=== PATIENT | female | born 1955 | race Caucasian/White ===

== ENCOUNTER 2024-09-19 04:39 | Observation (INO) | payer BC, SELFPAY ==
[2024-09-18 23:35] VITALS: BP 161/68
[2024-09-18 23:36] VITALS: BP 161/68; BMI 30.4
[2024-09-18 23:49] LABS: Hematocrit 41.5 % (37.0-47.0); Hemoglobin 14.1 g/dL (12.0-16.0); Mean Corp Hgb Conc. 34.0 g/dL (33.0-37.0); Mean Corpuscular Volume 83.2 fL (81.0-99.0); Nucleated Red Blood Cells % 0 %; Platelet Count 229 10^3/uL (130-400); Red Cell Dist. Width 12.5 % (11.5-14.5)
[2024-09-18 23:58] LABS: ALT (SGPT) 36 U/L (0-35); AST (SGOT) 25 U/L (14-36); Albumin 4.8 g/dl (3.5-5.0); Alkaline Phosphatase 89 U/L (38-126); Blood Urea Nitrogen 14 mg/dl (7-17); Calcium 10.3 mg/dl (8.4-10.2); Carbon Dioxide 26 mmol/L (22-30); Chloride 108 mmol/L (98-107); Estimated Creatinine Clearance 84 ml/min; Glucose 108 mg/dl (70-99); Potassium 4.0 mmol/L (3.5-5.1); Sodium 142 mmol/L (135-145); Total Protein 7.3 g/dl (6.3-8.2); eGFR > 60.00
[2024-09-19] VITALS (9 sets, daily range): BP systolic 108–181; BP diastolic 60–82; PULSE 69–80; O2SAT 95; BMI 28.3
[2024-09-19] LABS: INR 0.90; PT 12.6 Sec (11.4-14.6)
[2024-09-19 00:01] LABS: APTT 30.3 Sec (23.4-35.0)
[2024-09-19 00:09] LABS: Troponin I < 0.012 ng/ml
--- NOTE | 2024-09-19 00:34 | ED.CVA ---
History of Present Illness
General
Chief Complaint: CVA/TIA Symptoms
Source: patient
Exam Limitations: none
Time Seen by Provider: 09/18/24 23:33
Nursing documentation reviewed up to this point in time: agreed with
Onset of Stroke Symptoms
Onset of symptoms known: Yes
Date of onset of symptoms: 09/18/24
Time of onset of symptoms: 21:30
History of Present Illness
History of Present Illness:
Note:
CHIEF COMPLAINT(S)
Difficulty focusing, numbness in fingers, and transient speech difficulties.
HISTORY OF PRESENT ILLNESS
The patient is a 69-year-old female who reported difficulty focusing around 8:30 AM while at her computer. She experienced numbness in three fingers of her hand, which lasted one to two minutes and then resolved spontaneously. Later in the day,
approximately two hours prior to the evaluation, the patient had difficulty recalling a friends name during a conversation and experienced transient speech disturbances, described as words not coming out clearly. These episodes resolved within one
to two minutes, and she reported feeling well since. The patient denies a history of neurological issues, strokes, or cardiac issues.
MEDICATIONS
- Lisinopril Hydrochloride for hypertension
- Atorvastatin
- Acetaminophen as needed for discomfort
REVIEW OF SYSTEMS
- Neurological: Difficulty focusing, transient numbness in fingers, speech disturbances.
- Cardiovascular: No history of cardiac issues reported.
PHYSICAL EXAM
Nursing notes reviewed and vital signs reviewed.
PROBLEM LIST
Acute:
- Transient speech disturbances
- Numbness in fingers
- Difficulty focusing
PLAN
- Conduct a computerized tomography scan to evaluate the concerning symptoms and ensure no progression to a more severe condition.
- Monitor for any development of worsening symptoms.
DIFFERENTIAL DIAGNOSIS
The Differential Diagnosis includes, in no particular order and is not limited to:
- Transient ischemic attack
- Stroke
- Seizure
- Migraine with aura
- Hypoglycemia
- Multiple sclerosis
- Conversion disorder
- Carpal tunnel syndrome
- Stress-induced symptomatology
- Benign fasciculation syndrome
CARE-UPDATE
09/19/24 - 00:31
Updated the note to include recent CT scan results, which were positive as interpreted by both the radiologist and AI, indicating no immediate concerns. Despite reassuring imaging results, patient advised to stay in the hospital for further
observation due to previous episode of aphasia. Further neurological testing scheduled for the following day to investigate potential underlying causes. Current cholesterol medication regimen unchanged.
NIHSS:
Result Summary
0 points undefined
Inputs:
1A: Level of consciousness -> 0 = Alert; keenly responsive
1B: Ask month and age -> 0 = Both questions right
'Blink eyes' & 'squeeze hands' -> 0 = Performs both tasks
2: Horizontal extraocular movements -> 0 = Normal
3: Visual anaya -> 0 = No visual loss
4: Facial palsy -> 0 = Normal symmetry
5A: Left arm motor drift -> 0 = No drift for 10 seconds
5B: Right arm motor drift -> 0 = No drift for 10 seconds
6A: Left leg motor drift -> 0 = No drift for 5 seconds
6B: Right leg motor drift -> 0 = No drift for 5 seconds
7: Limb ataxia -> 0 = No ataxia
8: Sensation -> 0 = Normal; no sensory loss
9: Language/aphasia -> 0 = Normal
10: Dysarthria -> 0 = Normal
11: Extinction/inattention -> 0 = Normal
Disposition:
SUMMARY OF ENCOUNTER
The patient, a 69-year-old female, presented to the emergency department with transient symptoms including difficulty focusing, speech disturbances, and numbness in the fingers, raising concerns of a transient ischemic attack (TIA). A CT scan was
conducted and reviewed, showing no immediate concerns, but due to the previous episode of aphasia and given her age, it was deemed necessary to admit her for further observation and evaluation to rule out the possibility of more severe conditions
such as a stroke.
DISPOSITION
Admit.
ASSESSMENT
The patient is likely experiencing a transient ischemic attack. Additional possibilities include stroke and other neurological conditions that could mimic TIA symptoms.
PLAN
The patient will be admitted for further observation and more extensive neurological testing will be conducted to investigate underlying causes. CT scan results are reassuring, but close monitoring is required.
INDEPENDENT REVIEW OF LABS AND INTERPRETATION OF TESTS
- My independent evaluation of the recent CT scan indicates no immediate concerns with focus on ruling out acute ischemic stroke.
DIAGNOSIS
- Transient ischemic attack (G45.9)
- Potential for ischemic stroke (I63.9)
MEDICAL DECISION MAKING
- Number and Complexity of Problems Addressed: Chronic conditions affecting care include hypertension and hyperlipidemia. Differential diagnosis includes transient ischemic attack, stroke, seizure, migraine with aura, hypoglycemia, multiple
sclerosis, conversion disorder, carpal tunnel syndrome, stress-induced symptomatology, and benign fasciculation syndrome.
- Data:
- Category 1: My independent review of the CT scan was conducted to ensure there were no acute signs of stroke, and results were reassuring.
- Category 3: Admission was discussed and decided upon due to the patients age, symptom presentation, and potential underlying serious conditions requiring close monitoring and further neurologic evaluation.
- Risk: Admission was deemed necessary due to the risk of progression to a more severe condition like a stroke.
Phy Exam
General Physical Exam
General Presentation: well appearing and no apparent distress
General Skin: warm and dry
General Habitus: normal
General Mental: alert
General Hydration: appears well hydrated
ENT Exam
ENT Exam: EOMI, pharynx normal, neck supple and normocephalic
Eye Exam
Eye Exam: PERRL, cornea clear and conjunctiva normal
Cardiovascular Exam
Cardiovascular Exam: regular rate/rhythm, no edema, no murmur and normal peripheral pulses
Pulmonary Exam
Pulmonary Exam: lungs clear, no respiratory distress, no rales, no crackles, no rhonchi, no stridor, no wheezing and no cough
Gastrointestinal Exam
Gastrointestinal Exam: normal bowel sounds, non tender, soft, no organomegaly, no pulsatile mass and non distended
Neurological Exam
Neurological Exam: alert, oriented x3, no motor deficits and speech normal
Musculoskeletal Exam
Musculoskeletal Exam: full ROM and no edema
Skin Exam
Skin Exam: normal color, warm/dry, no rash and no petechia
Psychiatric Exam
Psychiatric Exam: normal mood/affect
Course
Orders/Labs/Results
Orders:
Orders
09/18/24 23:34
CT BRAIN PERF STROKE ALERT Urgent
Comment:
Reason For Exam: resolved aphasia
CT HEAD STROKE ALERT W/o Cont Urgent
Comment:
Reason For Exam: resolved aphasia
CT HEAD/NECK ANG STROKE ALERT Urgent
Comment:
Reason For Exam: resolved aphasia
09/18/24 23:35
Complete Blood Count/With Diff Urgent
Comprehensive Metabolic Panel Urgent
Erythrocyte Sed Rate Urgent
PTT Urgent
Prothrombin Time Urgent
Troponin I Urgent
09/18/24 23:42
EKG [Electrocardiogram (*1)] Urgent
Reason for Study: TIA/Stroke
EKG- Treatment ONCE
Abnormal Lab Results
09/18/24
23:35
Absolute Monos (auto) 0.9 H 10^3/uL
(0.1-0.6)
Monocytes % 10.3 H %
(1.7-9.3)
Chloride 108 H mmol/L
(98-107)
Glucose 108 H mg/dl
(70-99)
Calcium 10.3 H mg/dl
(8.4-10.2)
ALT 36 H U/L
(0-35)
09/18/24 23:35
09/18/24 23:35
Vital Signs
Initial and Last Documented VS:
Initial Vital Signs
Pulse Resp BP Pulse Ox
79 17 161/68 99
09/18/24 23:35 09/18/24 23:35 09/18/24 23:35 09/18/24 23:35
Last Documented Vital Signs
Temp Pulse Resp BP Pulse Ox
98.0 F 77 12 161/68 98
09/18/24 23:36 09/18/24 23:36 09/18/24 23:36 09/18/24 23:36 09/18/24 23:36
*Radiology
Radiology exam reviewed: radiology read reviewed
*Pulse Oximetry
SaO2: 98
Oxygen Mode of Delivery: Room air
Patient hypoxic: no
*Critical Care Note
Total Time (30-74mins, 75-104mins- exclusive of procedures): 36 (Critical care statement: A total of 36 minutes of critical care time was provided for this patient. This time is separate from time utilized to perform the aforementioned documented
procedures. Aggregate critical care time includes only time during which I was engaged in work directl)
ED Attending Note
-
Portions of this chart may have been created with voice recognition software.� Occasional wrong word or��sound alike� substitutions may have occurred due to the inherent limitations of voice recognition software.
Discharge Plan
Departure
Patient Disposition: Admit
Date of Disposition: 09/19/24
Time of Disposition: 00:34
Admit to: Telemetry
Presentation/result/management discussed w/ accepting MD/DO: Hospitalist
Discharge Problem:
Expressive aphasia
Instructions: Transient Ischemic Attack (DC)
Prescriptions:
No Action
cetirizine [Zyrtec] 10 mg Tablet
10 mg PO DAILYPRN PRN (Reason: allegies)
atorvastatin 10 mg tablet
10 mg PO DAILY
lisinopril-hydrochlorothiazide 20-12.5 mg tablet
1 tab PO DAILY
famotidine 40 mg tablet
40 mg PO DAILY
Referrals:
Meena Morrison MD [Family Provider, Family Practice]
Interventions
Interventions:
*Risk Screen - Suicide Last Done: 09/18/24 23:36
*General Assessment Last Done: 09/18/24 23:36
*Neglect/Abuse Screening Last Done: 09/18/24 23:36
*ED- Fall Risk Assessment Last Done: 09/18/24 23:36
ED- Pulmonary Assessment Last Done: 09/19/24 00:34
ED- Neurological Assessment Last Done: 09/18/24 23:42
ED- Cardiac Assessment Last Done: 09/19/24 00:34
Discharge Date and Time
Print Language: AZERI
[2024-09-19] MEDS: ASPIRIN 325 MG PO (00:51)
--- NOTE | 2024-09-19 04:11 | HPS.HSE ---
Family Physician
-
Family Physician: Meena Morrison MD
Chief Complaint
-
Speech difficulty
History of Present Illness
Patient is a 69y F with PMH significant for hypertension who presents to ED complaining of speech difficulties. Patient states that she had an initial episode around 8:30 in the AM of numbness in the L hand and face along wth difficulty reading
/ focusing on word on her computer. These symptoms lasted for 1-2 minutes then fully resolved. She went about her day with no further issues until around 9:30 PM. She was speaking with her when she was noted to have word finding
difficulties and trouble expressing speech. No dysarthria. No numbness / tingling / weakness. No headache or vision changes. These symptoms also lasted 1-2 minutes and then fully resolved. Patient spoke with her PCP who recommended she present
to the ED for further evaluation.
Patient is resting comfortably here with no new / recurrent complaints.
She denies any prior history of CVA / VA / etc.
Medical History
Past Medical History
Past Medical History: Reports Other
Additional Past Medical History:
Hypertension
Dyslipidemia
GERD
Nephrolithiasis
Past Surgical History: Reports Other
Additional Past Surgical History:
Lumbar Discectomy
Lithotripsy
T&A
Social History
Tobacco: Non-smoker
Alcohol: Occasional (Rare)
Drug: None
Personal:
Living: With Family
Family History
Family History: Other (Mother: Leukemia Father: Longevity)
Allergies / Home Medications
Allergies reflects when Allergies were last updated in [employer].
Home Medications with original date entered in [employer]
Allergy/Medication List:
Allergies
Allergy/AdvReac Type Severity Reaction Status Date / Time
acetaminophen (From Percocet) Allergy Intermediate Hives Verified 09/18/24 23:41
oxycodone (From Percocet) Allergy Intermediate Hives Verified 09/18/24 23:41
cat dander Allergy Unknown Verified 09/18/24 23:41
codeine Allergy Itching Verified 09/18/24 23:41
Home Medications
atorvastatin 10 mg tablet 10 mg PO DAILY 05/07/22
cetirizine 10 mg tablet (Zyrtec) 10 mg PO DAILYPRN PRN allegies 05/07/22
famotidine 40 mg tablet 40 mg PO DAILY 05/07/22
lisinopril 20 mg-hydrochlorothiazide 12.5 mg tablet 1 tab PO DAILY 05/07/22
Review of Systems
-
History Source: Patient
A 12 point ROS was completed and negative except as noted: Yes
Constitutional: Denies Fever, Fatigue or Chills
Respiratory: Denies Cough or Trouble Breathing
Cardiac: Denies Chest Pain or Palpitations
Abdomen/GI: Denies Abdominal Pain, Nausea, Vomiting or Diarrhea
: Denies Dysuria or Frequency
Musculoskeletal: Denies Joint Pain or Edema
Neurological: Denies Dizzy, Headache, Weakness or Numbness
Psych: Denies Depression or Anxiety
Physical Exam
Vital Signs
Vital Signs
Temp Pulse Resp BP Pulse Ox
98.0 F 60 17 124/64 96
09/18/24 23:36 09/19/24 02:45 09/19/24 02:45 09/19/24 02:00 09/19/24 03:45
Physical Exam
General: Other (69y F in no acute distress.)
HEENT: Moist mucous membranes and PERRLA
Respiratory: Clear; No Wheezes, Rales or Rhonchi
Cardiac: S1/S2 and Regular Rhythm; No Murmur
GI: Soft, Non Tender, Non Distended and Normal Bowel Sounds
Musculoskeletal: No Clubbing, No Cyanosis and No Edema
Neuro: AO x 3 and Nonfocal/grossly intact
Laboratory Results
-
09/18/24 23:35
09/18/24 23:35
Laboratory Results
PT 12.6 Sec (11.4-14.6) 09/18/24:35
INR 0.90 09/18/24:35
APTT 30.3 Sec (23.4-35.0) 09/18/24 23:35
Total Bilirubin 0.7 mg/dl (0.2-1.3) 09/18/24:35
AST 25 U/L (14-36) 09/18/24:35
ALT 36 U/L (0-35) H 09/18/24:35
Alkaline Phosphatase 89 U/L (38-126) 09/18/24:35
Troponin I < 0.012 ng/ml 09/18/24:35
Impression/Plan
-
A/P: Patient is a 69y F with PMH significant for hypertension and dyslipidemia who presents to ED complaining of speech difficulty this evening.
CVA / TIA
- Observe overnight for further evaluation and treatment.
- Two brief episodes of concerning symptoms throughout the day today - currently symptom-free.
- CT, CTA, CT perfusion all unremarkable in the ED.
- Follow for new / recurrent symptoms.
- MRI in AM.
- ASA daily for now.
- Neurology evaluation.
Benign Hypertension
- Continue usual home med regimen and adjust as needed for goal of normotension.
Thyroid Nodules
- Incidental note of 1.9cm L thyroid nodule on CT scans.
- Follow-up with routine outpatient dedicated thyroid US.
DVT Prophylaxis: SCDs
Code Status: Full
--- NOTE | 2024-09-19 06:16 | PTCARENOTE ---
Pt. arrived to unit from ED via stretcher. Patient able to safely ambulate from stretcher to bed in room 339-1 on . Pt. AAOx3 and able to make needs known. Tele placed per orders. NIH 0. Oriented to unit. Call ramirez within reach. Plan of care
ongoing.
[2024-09-19 07:14] LABS: Hematocrit 37.4 % (37.0-47.0); Hemoglobin 12.8 g/dL (12.0-16.0); Mean Corp Hgb Conc. 34.2 g/dL (33.0-37.0); Mean Corpuscular Volume 82.0 fL (81.0-99.0); Platelet Count 191 10^3/uL (130-400); Red Cell Dist. Width 12.4 % (11.5-14.5)
[2024-09-19] MEDS: ZESTRIL 20 MG PO (07:35)
[2024-09-19] MEDS: LOW STRENGTH ASPIRIN 81 MG PO (07:35)
[2024-09-19] MEDS: LIPITOR 10 MG PO (07:35)
[2024-09-19] MEDS: PEPCID 40 MG PO (07:35)
[2024-09-19 07:44] LABS: Blood Urea Nitrogen 12 mg/dl (7-17); Calcium 9.8 mg/dl (8.4-10.2); Carbon Dioxide 25 mmol/L (22-30); Chloride 108 mmol/L (98-107); Estimated Creatinine Clearance 87 ml/min; Glucose 113 mg/dl (70-99); HDL Cholesterol 35 mg/dl; LDL Cholesterol, Calculated 55 mg/dl; Potassium 3.9 mmol/L (3.5-5.1); Sodium 139 mmol/L (135-145); Very Low Density Lipoprotein 34 mg/dl (0-30); eGFR > 60.00
[2024-09-19 09:01] LABS: Glycohemoglobin (HgbA1c) 5.8 % (4.0-5.6)
--- NOTE | 2024-09-19 11:05 | W.PN.HOSP.TC ---
Today's Communication/Plan
-
MRI of the brain
Assessment / Plan
Assessment / Plan
Physical exam:
General: Well Developed, Well Nourished and No Apparent Distress
HEENT: Normocephalic, Atraumatic and Moist Mucous Membranes
Respiratory: Clear to Auscultation; Negative Wheezes, Rales or Rhonchi
Cardiac: Regular Rhythm and S1/S2
GI: Soft, Nontender and Nondistended
Musculoskeletal: No Clubbing, No Cyanosis and No Edema
Neuro: Awake, Alert and Oriented, no neurological deficits
Psych: Calm
A/P:
CVA / TIA
- Observe overnight for further evaluation and treatment.
- Two brief episodes of concerning symptoms throughout the day today - currently symptom-free.
- CT, CTA, CT perfusion all unremarkable in the ED.
- Follow for new / recurrent symptoms.
- MRI today.
- ASA daily for now.
- Neurology evaluation.
Benign Hypertension
- Continue usual home med regimen and adjust as needed for goal of normotension.
- Restart HCTZ 12.5 mg daily
Thyroid Nodules
- Incidental note of 1.9cm L thyroid nodule on CT scans.
- Follow-up with routine outpatient dedicated thyroid US.
DVT Prophylaxis: SCDs
Code Status: Full
Anticipated Discharge: Within 24 hours
Subjective/Interval History
-
Date of Service: September 19, 2024
Patient feels better today. No slurred speech today.
Objective Data
-
Labs:
Laboratory Results
09/18/24 09/19/24
23:35 06:31
WBC 9.2 8.4
Hgb 14.1 12.8
Hct 41.5 37.4
Plt Count 229 191
PT 12.6
INR 0.90
APTT 30.3
Sodium 142 139
Potassium 4.0 3.9
Chloride 108 H 108 H
Carbon Dioxide 26 25
BUN 14 12
Creatinine 0.7 0.7
Glucose 108 H 113 H
Calcium 10.3 H 9.8
Total Bilirubin 0.7
AST 25
ALT 36 H
Alkaline Phosphatase 89
Vital Signs:
Vital Signs
Temp Pulse Resp BP Pulse Ox
98.8 F 65 18 125/78 96
09/19/24 07:00 09/19/24 07:35 09/19/24 07:00 09/19/24 09:15 09/19/24 08:00
[2024-09-19] MEDS: ORETIC 12.5 MG PO (11:52)
--- NOTE | 2024-09-19 11:52 | CM ---
Reviewed the chart notes and spoke with the patient and her daughter at the bedside. The patient is admitted under observational status. The observation letter was provided and explained. The patient had no questions with regards to the letter.
The patient resides alone in a two story home with a total of three steps to enter the home. The patient reports no DME/VN/SNF in the past. The patient confirmed her pharmacy of choice is [facility] Loving. continues to be available
to patient/family and is monitoring medical plan for needs at discharge.
Plan: Discharge to home when medically stable. No needs anticipated.
--- NOTE | 2024-09-19 12:03 | PTOTSP ---
Speech therapy
Presentation: Patient's speech and language appeared to be WNL during conversation. Patient denied any communicative deficits and reports communication and vision to be back to baseline in comparison to 09/18. Per family, patient's communication is
back to baseline. .
Swallowing Function: REGULATORY ASSOCIATE observed patient with several bites of regular consistency solids and sips (straw) of thin liquids in which patient appeared to tolerate as she did not exhibit any overt clinical s/sx of aspiration or difficulty with
mastication/ manipulation. Patient denied any dysphagia complaints.
Per RN, patient tolerated medications whole with thin liquids.
Recommendations:
1) Regular consistency solids and thin liquids
2) Aspiration and reflux precautions
3) Medications whole with thin liquids
Plan: REGULATORY ASSOCIATE will continue to follow to ensure tolerance; pending hospitalization.
--- NOTE | 2024-09-19 12:42 | W.DCSUMMARY ---
Discharge Summary
Discharge Data
Date of Admission: 09/19/24
Date of Discharge: 09/19/24
-
Pending Results: No
Hospital Course
Patient is 69 years old female history of hypertension, hyperlipidemia, came into the hospital with transient neurological deficit with recurrent episodes. Patient had an MRI of the brain which shows no acute intracranial abnormalities. She was
started on aspirin and kept on statins. Neurology consulted and recommended DAPT and increased statins. Neurology cleared her for discharge today.
Discharge Plan
-
Patient Disposition: Home (Routine Discharge)
Discharge Diagnosis/Procedures: Transient ischemic attack.
Diet: Low Cholesterol
Activity: As tolerated
Blood Work: Please PCP to order CBC, BMP within 1 week
Referrals:
Meena Morrison MD [Family Provider, Family Practice] - in less than 1 week
Prescriptions:
New
aspirin 81 mg Tablet,Chewable
81 mg PO DAILY 30 Days Qty: 30 0RF
atorvastatin [Lipitor] 40 mg tablet
40 mg PO HS Qty: 30 0RF
clopidogrel [Plavix] 75 mg tablet
75 mg PO DAILY 21 Days Qty: 21 0RF
Continued
cetirizine [Zyrtec] 10 mg Tablet
10 mg PO DAILYPRN PRN (Reason: allegies)
lisinopril-hydrochlorothiazide 20-12.5 mg tablet
1 tab PO DAILY
famotidine 40 mg tablet
40 mg PO DAILY
Discontinued
atorvastatin 10 mg tablet
10 mg PO DAILY
Discharge Orders:
Discharge Patient (As Directed); Ordered 09/19/24
Ordered By: Cristi Greer
Discharge Date and Time
Print Language: MAORI
[2024-09-19] MEDS: PLAVIX 300 MG PO (16:34)
--- NOTE | 2024-09-19 17:20 | CON.NEURO ---
Neuro Assessment/Plan
Assessment
MRI brain imgs rev'd, no stroke. incidental Left tentorial meningioma.
CTA head/neck mild left carotid plaque, no significant stenosis/LVO
TIA, fully resolved. suspected etiology to be microvascular
21 days of DAPT then ASA alone, increase Lipitor 40
has completed standard of care, we discussed option of additional cardiac monitoring with a 3 year afib detection rate of 21%
Consultation
Order
Date of Consultation: 09/19/24
Requesting Provider: Fede Veloz
Reason for Consult: TIA
Subjective/Objective
Subjective Data
Date of Service: September 19, 2024
Patient is a 69y F with PMH significant for hypertension who presents to ED complaining of speech difficulties. She works in case management, was working on her computer in the morning had L hand/face numbness. later in the day developed speech
changes. Then in the afternoon, she had difficulty reading/focusing her vision which lasted 1-2 minutes. All symptoms now resolved.
Objective Data
Vital Signs
Temp Pulse Resp BP Pulse Ox
36.7 C 68 19 133/69 97
09/19/24 15:00 09/19/24 15:00 09/19/24 15:00 09/19/24 15:00 09/19/24 15:00
Lab Results
09/19/24 06:31
09/19/24 06:31
PT 12.6 Sec (11.4-14.6) 09/18/24 23:35
INR 0.90 09/18/24 23:35
APTT 30.3 Sec (23.4-35.0) 09/18/24 23:35
Sodium 139 mmol/L (135-145) 09/19/24 06:31
Potassium 3.9 mmol/L (3.5-5.1) 09/19/24 06:31
BUN 12 mg/dl (7-17) 09/19/24 06:31
Glucose 113 mg/dl (70-99) H 09/19/24 06:31
Calcium 9.8 mg/dl (8.4-10.2) 09/19/24 06:31
LDL Cholesterol, Calc 55 mg/dl 09/19/24 06:31
Patient Allergies
acetaminophen (From Percocet) Allergy (Intermediate, Verified 09/18/24 23:41)
Hives
oxycodone (From Percocet) Allergy (Intermediate, Verified 09/18/24 23:41)
Hives
cat dander Allergy (Verified 09/18/24 23:41)
Unknown
codeine Allergy (Verified 09/18/24 23:41)
Itching
Physical Exam
-
AAOx3, speech clear, language intact
VFF, EOMI, face symmetric
full strength b/l UE/LE, no pronator drift
sensation intact temp/vib
Medications
-
Active Medications
Generic Name Dose Route Start Last Admin
Trade Name Freq PRN Reason Stop Dose Admin
Acetaminophen 650 mg 09/19/24 05:40
Acetaminophen 325 Mg Tablet PO 10/17/24 05:39
Q4HPRN PRN
Mild Pain / Temp > 101
Aspirin 81 mg 09/19/24 08:00 09/19/24 07:35
Aspirin 81 Mg Chewable Tablet PO 10/17/24 07:59 81 mg
DAILY TY Administration
Atorvastatin Calcium 10 mg 09/19/24 08:00 09/19/24 07:35
Atorvastatin (Lipitor) 10 Mg Tablet PO 10/17/24 07:59 10 mg
DAILY TY Administration
Clopidogrel Bisulfate 75 mg 09/20/24 08:00
Clopidogrel 75 Mg Tablet PO 10/10/24 08:01
DAILY TY
Famotidine 40 mg 09/19/24 08:00 09/19/24 07:35
Famotidine 40 Mg Tablet PO 10/17/24 07:59 40 mg
DAILY TY Administration
Hydrochlorothiazide 12.5 mg 09/19/24 11:15 09/19/24 11:52
Hydrochlorothiazide 12.5 Mg Tablet PO 10/17/24 11:14 12.5 mg
DAILY TY Administration
Lisinopril 20 mg 09/19/24 08:00 09/19/24 07:35
Lisinopril 20 Mg Tablet PO 10/17/24 07:59 20 mg
DAILY TY Administration
Sodium Chloride 0 flush 09/19/24 06:00
Sodium Chloride 0.9% (Flush) Syringe IV 10/17/24 05:59
PER PROTOCOL TY
Home Medications
�Medication �Instructions �Recorded
atorvastatin 10 mg tablet 10 mg PO DAILY 05/07/22
cetirizine 10 mg tablet (Zyrtec) 10 mg PO DAILYPRN THIERRY jean-baptistegilalito 05/07/22
famotidine 40 mg tablet 40 mg PO DAILY 05/07/22
lisinopril 20 1 tab PO DAILY 05/07/22
mg-hydrochlorothiazide 12.5 mg
tablet
== END 2024-09-19 18:40 | disposition home or self-care (01) ==
LOC: 3 WEST ACU 04:39
PROVIDERS: ADMITTING PHYSICIAN Hospitalist; ATTENDING PHYSICIAN Hospitalist; CONSULT PHYSICIAN Psychiatry & Neurology Clinical Neurophysiology; EMERGENCY PHYSICIAN Student in an Organized Health Care Education/Training Program; FAMILY PHYSICIAN Family Medicine
DX: G45.9 Transient cerebral ischemic attack, unspecified (principal); I10 Essential (primary) hypertension; E78.5 Hyperlipidemia, unspecified; K21.9 Gastro-esophageal reflux disease without esophagitis; E04.1 Nontoxic single thyroid nodule; D32.0 Benign neoplasm of cerebral meninges; R47.01 Aphasia; Z79.899 Other long term (current) drug therapy
CPT/HCPCS: 0042T; 70450; 70496; 70498; 70553; 80048; 80053; 80061; 83036; 84443; 84484; 85025; 85027; 85610; 85652; 85730; 92610; 93005; 97162; 97165; 99291; A9575; G0378; Q9967